=== PATIENT | female | born 1970 | race Caucasian/White ===

== ENCOUNTER 2020-07-30 13:31 | Emergency (ER) | payer SELFPAY ==
[2020-07-30] MEDS ORDERED: KETOROLAC TROMETHAMINE 30MG/ML ONE (14:24)
[2020-07-30] MEDS ORDERED: HYDROCODONE/ACETAMINOPHEN 5/325 MG TAB ONE (14:25)
== END 2020-07-30 16:53 | disposition home or self-care (01) ==
LOC: EDH 13:31
DX: M77.8 Other enthesopathies, not elsewhere classified (principal); M13.832 Other specified arthritis, left wrist; Z72.0 Tobacco use; Z88.8 Allergy status to other drugs, medicaments and biological substances
CPT/HCPCS: 29125; 73110; 73130; 96372; 99284; J1885